=== PATIENT | male | born 2005 | race Hispanic/Latino ===

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

== ENCOUNTER 2023-05-23 17:04 | Emergency (ER) | payer OTHER, SELFPAY ==
[2023-05-23 18:19] LABS: SARS-CoV-2 NAA Rapid Test Not Detected (NotDetected)
== END 2023-05-23 19:00 | disposition home or self-care (01) ==
LOC: CSHERS 17:04
DX: J06.9 Acute upper respiratory infection, unspecified (principal)
CPT/HCPCS: 87081; 87430; 99284

== ENCOUNTER 2024-05-09 14:30 | Emergency (ER) | payer SELFPAY ==
[2024-05-09] MEDS ORDERED: Acetaminophen 500 MG TAB ONE (16:58)
== END 2024-05-09 17:15 | disposition home or self-care (01) ==
LOC: CSHERS 14:30
DX: J02.9 Acute pharyngitis, unspecified (principal)
CPT/HCPCS: 87081; 87400; 87430; 99283